=== PATIENT | female | born 1965 | race Caucasian/White ===

== ENCOUNTER 2021-06-23 11:48 | Outpatient (CLI) | payer OTHER, SELFPAY ==
--- NOTE | 2021-06-23 11:52 | XR_ITS ---
WS: [id number] K[facility], AP view, 06/23/2021 Clinical Data: stones Comparison: KUB, 07/10/2014. Findings: No abnormal intraabdominal masses or calcifications are seen. There is no dilatated small bowel or ev idence of obstruction. There is a levorotoscoliosis. There is a moderate amount of fecal material in the colon. XR/XR KUB [id number] Impression: Negative KUB.
== END 2021-06-23 11:49 | disposition home or self-care (01) ==
PROVIDERS: PCP Urology; Visit Provider Urology
DX: N20.1 Calculus of ureter (principal)
CPT/HCPCS: 74018; 81003

== ENCOUNTER 2021-06-30 14:01 | Outpatient (CLI) | payer OTHER, SELFPAY ==
--- NOTE | 2021-06-30 14:05 | XR_ITS ---
WS: [email or web address] K[facility], AP view, 06/30/2021 Clinical Data: LEFT URETERAL CALCULUS Comparison: KUB, 06/23/2021. Findings: No abnormal intraabdominal masses or calcifications are seen. There is no dilatated small bowel or ev idence of obstruction. There is a levoscoliosis of the lumbar spine. There are phleboliths in the true pelvis. XR/XR KUB [id number] Impression: Negative KUB.
== END 2021-06-30 14:02 | disposition home or self-care (01) ==
LOC: RAD 14:04
PROVIDERS: PCP Urology; Visit Provider Urology
DX: N20.1 Calculus of ureter (principal)
CPT/HCPCS: 74018; 81003

== ENCOUNTER → 2021-07-19 14:41 | Outpatient (BNVA) | payer OTHER, SELFPAY | PROVIDERS: PCP Urology; Visit Provider Emergency Medicine | DX: Z20.822 Contact with and (suspected) exposure to COVID-19 (principal) | CPT/HCPCS: 87400; 87635; 87880 ==

== ENCOUNTER 2021-08-13 12:05 | Outpatient (CLI) | payer OTHER, SELFPAY ==
--- NOTE | 2021-08-13 12:00 | XR_ITS ---
WS: [email or web address] K[facility], AP view, 08/13/2021 Clinical Data: UROLITHIASIS Comparison: KUB, 06/30/2021. Findings: No abnormal intraabdominal masses or calcifications are seen. There is no dilatated small bowel or ev idence of obstruction. There is a levoscoliosis of lumbar spine. There are phleboliths in the true pelvis. XR/XR KUB [id number] Impression: Negative KUB.
== END 2021-08-13 12:06 | disposition home or self-care (01) ==
PROVIDERS: Visit Provider Urology
DX: N20.9 Urinary calculus, unspecified (principal)
CPT/HCPCS: 74018; 81003

== ENCOUNTER 2022-08-16 12:04 | Outpatient (CLI) | payer OTHER, SELFPAY ==
--- NOTE | 2022-08-16 12:20 | XR_ITS ---
WS: [email or web address] Exam: XR KUB [id number] Date/Time of Exam: 08/16/2022 12:22 PM Reason For Exam: Urolithiasis Comparison 08/13/2021. No bowel obstruction or free air. No calcifications seen in the region of the kidneys. Nonspecific pe lvic calcifications. Levoscoliosis of the lumbar spine. No sign of organ enlargement. XR/XR KUB [id number] IMPRESSION: 1. No acute abdominal finding.
== END 2022-08-16 12:05 | disposition home or self-care (01) ==
LOC: RAD 12:08
PROVIDERS: Visit Provider Urology
DX: N20.9 Urinary calculus, unspecified (principal)
CPT/HCPCS: 74018